=== PATIENT | female | born 1970 | race Caucasian/White ===

== ENCOUNTER 2017-02-10 16:23 | Emergency (ER) | payer BC ==
--- NOTE | 2017-02-10 17:25 | Ultrasound Preliminary Report ---
Exam: US ABDOMEN LIMITED IMPRESSION: Cholelithiasis without evidence for acute cholecystitis. [facility] SITE ID: [id number]
--- NOTE | 2017-02-10 17:28 | Ultrasound Report ---
EXAM: ABDOMEN ULTRASOUND LIMITED, RUQ EXAM DATE: 02/10/2017 05:16 PM. CLINICAL HISTORY: RUQ and epigastric pain. COMPARISON: None. TECHNIQUE: Real-time scanning was performed with static images obtained. FINDINGS: Liver: Normal in size and echotexture. 13.9 cm. Main portal vein flow: Hepatopetal. Gallbladder: Cholelithiasis. No gallbladder wall thickening or pericholecystic fluid. Negative sonogr aphic Alberts sign. Biliary System: CBD measures 4.2 mm. No intrahepatic or extrahepatic ductal dilatation. Other: Limited views of the right kidney show no hydronephrosis. Maximum length 10 cm. IMPRESSION: Cholelithiasis without evidence for acute cholecystitis. [facility] Referring Provider Line: [phone] SITE ID: [id number]
[2017-02-10 17:32] LABS: BASOPHILS # (AUTO) 0.1 10^3/uL (0.0-0.1); BASOPHILS % (AUTO) 0.5 %; EOSINOPHILS % (AUTO) 0.3 %; LYMPHOCYTES # (AUTO) 0.9 10^3/uL (1.5-3.5); LYMPHOCYTES % (AUTO) 7.4 %; MEAN CORPUSCULAR HEMOGLOBIN 30.5 pg (27.0-31.0); MEAN CORPUSCULAR HGB CONC 34.1 g/dL (32.0-36.0); MEAN CORPUSCULAR VOLUME 89.7 fL (81.0-99.0); MEAN PLATELET VOLUME 8.1 fL (7.9-10.8); MONOCYTES # (AUTO) 0.2 10^3/uL (0.0-1.0); MONOCYTES % (AUTO) 1.9 %; NEUTROPHILS # (AUTO) 11.4 10^3/uL (1.5-6.6); NEUTROPHILS % (AUTO) 89.9 %; NUCLEATED RED BLOOD CELLS AUTO 0.1 /100WBC; RED CELL DISTRIBUTION WIDTH 13.5 % (12.0-15.0); UNCORRECTED WHITE BLOOD COUNT 12.7 x10^3/uL; WHITE BLOOD COUNT 12.7 x10^3/uL (4.8-10.8)
[2017-02-10 17:46] LABS: ALBUMIN/GLOBULIN RATIO 1.2 (1.0-2.2); BILIRUBIN,TOTAL 0.6 mg/dL (0.2-1.0); CALCIUM 9.5 mg/dL (8.5-10.3); CREATININE 0.8 mg/dL (0.4-1.0); POTASSIUM 3.8 mmol/L (3.5-5.0); TOTAL PROTEIN 8.2 g/dL (6.7-8.2)
[2017-02-10] MEDS ORDERED: DICYCLOMINE 10 MG CAPSULE PO STA (18:38)
[2017-02-10] MEDS ORDERED: DICYCLOMINE 10 MG CAPSULE PO ONE (18:45)
--- NOTE | 2017-02-10 19:13 | ED Physician Documentation ---
History of Present Illness - Stated complaint Stated Complaint: UPPER ABD PX - Chief complaint Chief Complaint: Abd Pain - History obtained from History obtained from: Patient (pt is here for evaluation of epigastric pain that started today then worsened after eating [place] food. some nausea but no vomiting, no diarrhea, no fevers, no prior hx of this. No hx of abdominal surgeries.) Review of Systems Constitutional: denies: Fever, Chills, Myalgias Throat: denies: Sore throat Cardiac: denies: Chest pain / pressure, Palpitations Respiratory: denies: Dyspnea, Cough GI: reports: Abdominal Pain, Nausea. 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, Other HEENT: None Psych: None Musculoskeletal: None Derm: None Other Past Medical History: perimenapausal - Past Surgical History Past Surgical History: No - Present Medications Home Medications: Ambulatory Orders Medication Instructions Recorded Confirmed Dicyclomine [Bentyl] 10 mg PO QID PRN #10 capsule 02/10/17 HYDROcod/ACETAM 5/325 [[place] 5/325] 1 - 2 ea PO Q6H PRN #15 tablet 02/10/17 Ondansetron Odt [Zofran] 4 mg TL Q6H PRN #10 tablet 02/10/17 - Allergies Allergies/Adverse Reactions: Allergies Allergy/AdvReac Type Severity Reaction Status Date / Time Iodinated Contrast- Oral and Allergy Hives Verified 02/10/17 16:35 IV Dye naproxen [From Aleve] Allergy Itching Verified 02/10/17 16:35 - Social History Does the pt smoke?: No Smoking Status: Never smoker Does the pt drink ETOH?: Yes Does the pt have substance abuse?: No - Immunizations Immunizations are current?: Yes - POLST Patient has POLST: No PD ED PE NORMAL - Vitals Vital signs reviewed: Yes - General General: No acute distress, Well developed/nourished - HEENT HEENT: Atraumatic, Moist mucous membranes - Cardiac Cardiac: RRR, No murmur, No gallop, No rub - Respiratory Respiratory: No respiratory distress, Clear bilaterally - Abdomen Abdomen: Soft. No: Non tender (RUQ and epigastric tenderness) - Back Back: No CVA TTP - Derm Derm: Normal color, Warm and dry, No rash - Extremities Extremities: No deformity, No edema - Neuro Neuro: Alert and oriented X 3, Normal speech - Psych Psych: Normal mood Results - Vitals Vitals: Vital Signs - 24 hr 02/10/17 16:24 Temperature 37 C Heart Rate 94 Respiratory 18 Rate Blood Pressure 147/86 H O2 Saturation 98 - Labs Labs: Laboratory Tests 02/10/17 02/10/17 17:26 17:26 WBC 12.7 H RBC 4.90 Hgb 15.0 Hct 44.0 MCV 89.7 MCH 30.5 MCHC 34.1 RDW 13.5 Plt Count 304 MPV 8.1 Neut # 11.4 H Lymph # 0.9 L [place] # 0.2 Eos # 0.0 Baso # 0.1 Absolute Nucleated RBC 0.01 Nucleated RBC % 0.1 Sodium 137 Potassium 3.8 Chloride 103 Carbon Dioxide 25 Anion Gap 9.0 BUN 16 Creatinine 0.8 Estimated GFR (MDRD) 77 L Glucose 99 Calcium 9.5 Total Bilirubin 0.6 AST 22 ALT 17 Alkaline Phosphatase 104 Total Protein 8.2 Albumin 4.5 Globulin 3.7 Albumin/Globulin Ratio 1.2 Lipase 34 - Rads (name of study) RUQ US Radiology: Final report received PD MEDICAL DECISION MAKING - ED course Complexity details: d/w patient ED course: pt with slightly elevated WBC count and cholelithiasis but no US evidence of acute cholecyctitis. LFT's and lipase were normal. Discussed these findings with the pt. will hold on surgical consult for now. pt was given return precautions. she was instructed to follow up with her primary care provider for a consult to surgery She expressed understanding. Departure - Departure Disposition: 01 Home, Self Care Clinical Impression: Cholelithiasis Condition: Good Instructions: Gallstones, ED Gallstone W Biliary Colic Follow-Up: JAMAAL CALERO [Primary Care Provider] - Prescriptions: Dicyclomine [Bentyl] 10 mg PO QID PRN #10 capsule PRN Reason: Abdominal Pain HYDROcod/ACETAM 5/325 [[place] 5/325] 1 - 2 ea PO Q6H PRN #15 tablet PRN Reason: Pain Ondansetron Odt [Zofran] 4 mg TL Q6H PRN #10 tablet PRN Reason: Nausea / Vomiting Comments: take your medications as instructed. Call your primary care provider to discuss a consult to see general surgery. Return to the ER for any new symptoms , worsening pain, fevers or any other new or worsening symptoms.
[2017-02-10] MEDS ORDERED: oxyCODONE/ACET 5/325 Prepack 4 PO STA (19:43)
[2017-02-10 19:49] VITALS: BP 128/71
[2017-02-10] MEDS ORDERED: oxyCODONE/ACET 5/325 Prepack 4 PO ONE (19:50)
== END 2017-02-10 19:49 | disposition home or self-care (01) ==
LOC: ED 16:23
DX: K80.20 Calculus of gallbladder without cholecystitis without obstruction (principal); E03.9 Hypothyroidism, unspecified; K21.9 Gastro-esophageal reflux disease without esophagitis
CPT/HCPCS: 36415; 76705; 80053; 83690; 85025; 99283; 99284; A9270

== ENCOUNTER 2017-05-21 09:29 | Outpatient (CLI) | payer OTHER ==
--- NOTE | 2017-05-24 14:13 | Mammography Report ---
DIGITAL SCREENING MAMMOGRAM: 05/21/2017 CLINICAL INDICATION: A 46-year-old nulliparous patient with history of benign left breast biopsy for screening. COMPARISON: Films from [place], [place], dated 08/27/2014, 05/29/2013, 04/26/2012, 11/17/2010 05/11/2010, 05/10/10, 04/27/2010. TECHNIQUE: Routine CC and MLO projections were obtained of the breasts. FINDINGS: The breasts again demonstrate scattered fibroglandular densities bilaterally. Biopsy marker in the left lower inner central breast is stable. No suspicious masses, clustered microcalcifications, or regions of architectural distortion are identified. IMPRESSION: BENIGN FINDINGS. RECOMMENDATION: Routine annual screening unless otherwise clinically indicated. BIRADS CATEGORY 2 benign findings. STANDARD QUALIFYING STATEMENTS: 1. This examination was reviewed with the aid of Computer-Aided Detection (CAD). 2. A negative or benign imaging report should not delay biopsy if clinically suspicious findings are present. Consider surgical consultation if warranted. More than 5% of cancers are not identified by imaging. 3. Dense breasts may obscure an underlying neoplasm. TD: 05/24/2017 14:12
== END 2017-05-21 09:30 | disposition home or self-care (01) ==
LOC: DI.S 09:29
PROVIDERS: ATTEND Registered Nurse
DX: Z12.31 Encounter for screening mammogram for malignant neoplasm of breast (principal)
CPT/HCPCS: 77067

== ENCOUNTER 2017-11-05 09:22 | Outpatient (CLI) | payer OTHER ==
--- NOTE | 2017-11-05 11:36 | CT Report ---
Procedure Date: 11/05/2017 Accession Number: [id number] / [id number] Procedure: CT - Chest W/O CPT Code: FULL RESULT: EXAM: CT CHEST EXAM DATE: 11/05/2017 09:37 AM. CLINICAL HISTORY: LUNG NODULES ON AB/PELVIS CT. COMPARISONS: None. TECHNIQUE: Routine helical CT imaging was performed through the chest. IV contrast: None. Reconstructions: Coronal and sagittal. In accordance with CT protocol optimization, one or more of the following dose reduction techniques were utilized for this exam: automated exposure control, adjustment of mA and/or KV based on patient size, or use of iterative reconstructive technique. FINDINGS: Lungs/Pleura: Multiple bilateral lung nodules. Projection Engineer nodules described on series 5 2 mm right upper lobe laterally image 13 4 mm right lower lobe lateral segment image 27 6 mm and 4 mm left lower lobe image 33. Mediastinum: Normal. No adenopathy or masses. The heart and great vessels are normal. Bones: Unremarkable. Visualized Abdomen: Unremarkable. Other: None. IMPRESSION: Multiple bilateral lung nodules largest 6 mm recommend follow-up CT at 3-6 months per Fleischner recommendation below Recommend follow-up of the described nodule(s) according to the following guidelines: Fleischner Society Recommendations 2017 MacMahon et al. Radiology 2017 Solid Nodules-Low Risk Patients: <6 mm (single or multiple) - No routine follow-up* 6-8 mm (single) -CT at 6-12 months, then consider CT at 18-24 months 6-8mm (multiple) -CT at 3-6 months, then consider at CT 18-24 months >8 mm (single) -Consider CT, PET/CT, or tissue sampling at 3 months >8 mm (multiple) -CT at 3-6 months, then consider CT at 18-24 months Solid Nodules-High Risk Patients: <6 mm (single or multiple) -Optional CT at 12 months* 6-8 mm (single) -CT at 6-12 months, then CT at 18-24 months 6-8mm (multiple) -CT at 3-6 months, then CT at 18-24 months >8 mm (single) -Consider CT, PET/CT, or tissue sampling at 3 months >8 mm (multiple) -CT at 3-6 months, then at 18-24 months *Nodules < 6mm do not require routine follow-up, but suspicious nodule morphology, upper lobe location, or both may warrant 12 month follow-up Subsolid nodules: <6 mm (single, GG or part solid) -No routine follow-up >=6 mm (single GG) -CT at 6-12 months to confirm, then CT q2 years until 5 years >=6 mm (single part solid) -CT at 3-6 months to confirm, if unchanged and solid <6mm, annual CT for 5 years <6 mm (multiple GG or part solid) -CT at 3-6 months. If stable, consider CT at 2 and 4 years >=6 mm (multiple GG or part solid) -CT at 3-6 months. Subsequent management based on most suspicious nodule(s). Consider follow-up at 2 and 4 years for certain suspicious nodules <6mm. If solid component develops or growth, consider resection. [facility]
== END 2017-11-05 09:23 | disposition home or self-care (01) ==
LOC: DI 09:22
PROVIDERS: ATTEND Nurse Practitioner Family
DX: J98.4 Other disorders of lung (principal); R91.8 Other nonspecific abnormal finding of lung field
CPT/HCPCS: 71250

== ENCOUNTER 2018-01-02 20:06 | Outpatient (CLI) | payer OTHER ==
--- NOTE | 2018-01-02 21:27 | Ultrasound Report ---
Reason: RUQ PAIN,ELEVATED LFIS,KNOWN CHOLELITHIASIS Procedure Date: 01/02/2018 Accession Number: [id number] / [id number] Procedure: US - Abdomen Limited CPT Code: FULL RESULT: EXAM: ABDOMEN ULTRASOUND LIMITED, RUQ EXAM DATE: 01/02/2018 08:17 PM. CLINICAL HISTORY: Right upper quadrant pain. Elevated liver function tests. Known cholelithiasis. COMPARISON: ABDOMEN LIMITED 02/10/2017 4:49 PM. TECHNIQUE: Real-time scanning was performed with static images obtained. FINDINGS: Liver: Normal in size and echotexture. 13.6 cm. Main portal vein flow: Hepatopetal. Gallbladder: Borderline wall thickening. Multiple mobile shadowing stones and sludge in the lumen. Biliary System: CBD measures 5 mm. No intrahepatic or extrahepatic ductal dilatation. Other: The visualized pancreas and right kidney are unremarkable. No free fluid. IMPRESSION: Multiple cholelithiasis with borderline wall thickening. No point tenderness or dilated ducts. [facility]
== END 2018-01-02 20:07 | disposition home or self-care (01) ==
LOC: DI 20:06
PROVIDERS: ATTEND Registered Nurse
DX: K80.20 Calculus of gallbladder without cholecystitis without obstruction (principal)
CPT/HCPCS: 76705

== ENCOUNTER 2018-06-05 10:35 | Outpatient (CLI) | payer OTHER ==
--- NOTE | 2018-06-05 15:08 | CT Report ---
Reason: OTHER NONSPECIFIC ABNORMAL FINDING OF LUNG FIELD Procedure Date: 06/05/2018 Accession Number: [id number] / [id number] Procedure: CT - CHEST WO CPT Code: FULL RESULT: EXAM: CT CHEST EXAM DATE: 06/05/2018 10:56 AM. CLINICAL HISTORY: Multiple lung nodules for surveillance. COMPARISONS: CHEST W/O 11/05/2017 9:34 AM. TECHNIQUE: Routine helical CT imaging was performed through the chest. IV contrast: None. Reconstructions: Coronal and sagittal. In accordance with CT protocol optimization, one or more of the following dose reduction techniques were utilized for this exam: automated exposure control, adjustment of mA and/or KV based on patient size, or use of iterative reconstructive technique. FINDINGS: Lungs/Pleura: No bronchial thickening, consolidation, or edema. Pulmonary vasculature is normal. No pericardial or pleural effusion. No pneumothorax. Pulmonary nodules: Right upper lobe: 2 mm pleural-based nodule image 8 series 4 mm peripheral nodule 14/4. Right middle lobe: None. Right lower lobe: 4 mm posterior pleural-based nodule 28/4; 5 mm lateral pleural-based nodule 30/4; 4 mm nodule abutting the low major fissure 37/4. Left upper lobe/lingula: 3 cm nodule abutting the upper major fissure 14/4; 2 mm nodule 21/4; 3 mm nodule 22/4. Left lower lobe: 3 mm nodule 32/4; 2 adjacent nodules 6 and 7 mm 35/4; 2 mm posterior pleural-based nodule 38/4. Accounting for slight differences in technical measurement variation, there has been no appreciable change in size or number of pulmonary nodules since 11/05/2017 Mediastinum: Normal. No adenopathy or masses. The heart and great vessels are normal. Bones: Unremarkable. Visualized Abdomen: Unremarkable. Other: None. IMPRESSION: 1. No significant interval change in multiple bilateral pulmonary nodules as detailed above. Largest single nodule measures 7 mm in the left lower lobe (image 35, series 4). Recommend follow-up per Fleischner guidelines. If low risk individual, consider follow-up in 18-24 months to ensure long-term stability. If high risk individual, consider follow-up in 12 months. [facility]
== END 2018-06-05 10:36 | disposition home or self-care (01) ==
LOC: DI 10:35
PROVIDERS: ATTEND Registered Nurse
DX: R91.8 Other nonspecific abnormal finding of lung field (principal)
CPT/HCPCS: 71250

== ENCOUNTER 2019-12-11 16:52 | Outpatient (CLI) | payer OTHER ==
--- NOTE | 2019-12-12 09:25 | Ultrasound Report ---
PROCEDURE: Abdomen Limited INDICATIONS: CALCULUS OF GALLBLADDER TECHNIQUE: Real-time focused scanning was performed of the abdomen, with image documentation. COMPARISON: None. FINDINGS: Liver is diffusely heterogeneous and measures 13.1 cm in length. There are multiple shadow ing nonmobile gallstones present. No definite gallbladder wall thickening, or pericholecystic fluid. Sonographic Alberts's sign may be present. Mildly dilated distal common bile duct which measures 7 mm. Pancreas unremarkable. Right kidney measures 9.8 cm. There is mild right pelviectasis. IMPRESSION: Cholelithiasis and possible sonographic Alberts's sign. Please correlate clinically and with LFTs to e xclude acute cholecystitis. Of note, no definite gallbladder wall thickening or pericholecystic fluid . Minimal prominence of the distal common bile duct. Mild right pelviectasis Reviewed by: Torsten Saucedo MD on 12/12/2019 9:24 AM PDT Approved by: Torsten Saucedo MD on 12/12/2019 9:24 AM PDT Station ID: [id number]
== END 2019-12-11 16:53 | disposition home or self-care (01) ==
LOC: DI 16:52
PROVIDERS: ATTEND Nurse Practitioner Family
DX: K80.20 Calculus of gallbladder without cholecystitis without obstruction (principal)
CPT/HCPCS: 76705

== ENCOUNTER 2021-05-31 09:54 | Outpatient (CLI) | payer OTHER ==
--- NOTE | 2021-06-01 08:15 | Mammography Report ---
BILATERAL DIGITAL SCREENING MAMMOGRAM 3D/2D: 05/31/2021 CLINICAL: Routine screening. Comparison is made to exams dated: 05/21/2017 mammogram and 08/27/2014 mammogram - [facility]. There are scattered fibroglandular elements in both breasts. No significant masses, calcifications, or other findings are seen in either breast. There has been no significant interval change. IMPRESSION: NEGATIVE There is no mammographic evidence of malignancy. A 1 year screening mammogram is recommended. This exam was interpreted at Station ID: [id number]. NOTE: For mammograms, a report in lay terms will be sent to the patient. Approximately 15% of breast malignancies will not be visualized mammographically. In the management of a palpable breast mass, a negative mammogram must not discourage biopsy of a clinically suspicious lesion. Electronically Signed By: Cj Dyer M.D. ddp/penrad:05/31/2021 12:00:05 ACR BI-RADS Category 1: Negative 3341F PARENCHYMAL PATTERN: (A) - The breast(s) demonstrate(s) scattered fibroglandular densities. BI-RADS CATEGORY: (1) - 1 RECOMMENDATION: (ANNUAL) - Recommend routine annual screening mammography. [id number] 1 year screening LATERALITY: (B)
== END 2021-05-31 09:55 | disposition home or self-care (01) ==
LOC: DI.S 09:54
PROVIDERS: ATTEND Registered Nurse
DX: Z12.31 Encounter for screening mammogram for malignant neoplasm of breast (principal)

== ENCOUNTER 2021-08-04 12:23 | Outpatient (CLI) | payer OTHER ==
--- NOTE | 2021-08-04 14:19 | XRAY Report ---
PROCEDURE: Chest 2 View X-Ray INDICATIONS: COUGH, UNSPECIFIED TECHNIQUE: 2 view(s) of the chest. COMPARISON: CT chest 06/05/2018. FINDINGS: Surgical changes and devices: Cholecystectomy clips. Lungs and pleura: No pleural effusions or pneumothorax. Lungs are clear. Mediastinum: Mediastinal contours are normal. Heart size is normal. Bones and chest wall: No suspicious bony abnormalities. Soft tissues appear unremarkable. IMPRESSION: No acute cardiopulmonary abnormality. Reviewed by: Hunter Doherty MD on 08/04/2021 2:18 PM PDT Approved by: Hunter Doherty MD on 08/04/2021 2:18 PM PDT Station ID: [id number]
== END 2021-08-04 12:24 | disposition home or self-care (01) ==
LOC: DI.S 12:23
PROVIDERS: ATTEND Nurse Practitioner Family
DX: R05.9 Cough, unspecified (principal)

== ENCOUNTER 2022-03-24 10:04 | Outpatient (CLI) | payer OTHER ==
[2022-03-24 14:58] LABS: BASOPHILS # (AUTO) 0.1 10^3/uL (0.0-0.1); BASOPHILS % (AUTO) 1.4 %; EOSINOPHILS % (AUTO) 0.8 %; HCT - HEMATOCRIT 44.9 % (37.0-47.0); HGB - HEMOGLOBIN 14.4 g/dL (12.0-16.0); LYMPHOCYTES # (AUTO) 1.8 10^3/uL (1.5-3.5); LYMPHOCYTES % (AUTO) 36.1 %; MEAN CORPUSCULAR HEMOGLOBIN 29.3 pg (27.0-31.0); MEAN CORPUSCULAR HGB CONC 32.1 g/dL (32.0-36.0); MEAN CORPUSCULAR VOLUME 91.3 fL (81.0-99.0); MONOCYTES # (AUTO) 0.3 10^3/uL (0.0-1.0); MONOCYTES % (AUTO) 5.6 %; NEUTROPHILS # (AUTO) 2.8 10^3/uL (1.5-6.6); NEUTROPHILS % (AUTO) 55.9 %; PLT - PLATELET COUNT 294 10^3/uL (130-450); RED BLOOD COUNT 4.92 10^6/uL (4.20-5.40); RED CELL DISTRIBUTION WIDTH 12.9 % (12.0-15.0)
[2022-03-24 15:28] LABS: ALBUMIN 3.9 g/dL (3.2-5.5); ALBUMIN/GLOBULIN RATIO 1.1 (1.0-2.2); BILIRUBIN,TOTAL 1.1 mg/dL (0.2-1.0); CALCIUM 9.4 mg/dL (8.5-10.3); CREATININE 0.7 mg/dL (0.4-1.0); TOTAL PROTEIN 7.6 g/dL (6.7-8.2)
[2022-03-24 15:49] LABS: THYROID STIMULATING HORMONE 3.42 uIU/mL (0.34-5.60)
== END 2022-03-24 10:05 | disposition home or self-care (01) ==
LOC: LAB.S 10:04
PROVIDERS: ATTEND Nurse Practitioner Family
DX: E03.9 Hypothyroidism, unspecified (principal); E55.9 Vitamin D deficiency, unspecified; R10.11 Right upper quadrant pain; R74.8 Abnormal levels of other serum enzymes
CPT/HCPCS: 36415; 80053; 82306; 84443; 85025

== ENCOUNTER 2022-04-03 07:31 | Outpatient (CLI) | payer OTHER ==
--- NOTE | 2022-04-03 09:21 | Ultrasound Report ---
PROCEDURE: Abdomen Limited INDICATIONS: RUQ ABD PAIN TECHNIQUE: Real-time focused scanning was performed of the abdomen, with image documentation. COMPARISON: 12/11/2019 FINDINGS: Liver measures 15 cm and echotexture is heterogeneous. Mildly greater than expected echoge nicity. The main portal vein is patent. Gallbladder is surgically absent (February 06, 2020). CBD measures 8 mm, which is within normal limits postcholecystectomy. Pancreatic head is unremarkable, tail not well visualized. Right kidney measures 10 cm, within normal limits. The IVC is patent. No pathologic free fluid. At the imaged area pain, at the epigastrium, no significant sonographic abnormalities. Evaluation is obscured by bowel gas. IMPRESSION: Gallbladder is surgically absent. CBD measures 8 mm, within normal limits postcholecystectomy. No sig nificant sonographic abnormalities. In the epigastrium at the imaged area of pain, no significant sonographic correlate. This area is po ewhat obscured by bowel gas. Mildly greater than expected hepatic echogenicity, most commonly associated with steatosis. Reviewed by: Ap Avery MD on 04/03/2022 9:19 AM PST Approved by: Ap Avery MD on 04/03/2022 9:19 AM PST Station ID: [id number]
== END 2022-04-03 07:32 | disposition home or self-care (01) ==
LOC: DI 07:31
PROVIDERS: ATTEND Nurse Practitioner Family
DX: R10.11 Right upper quadrant pain (principal); Z90.49 Acquired absence of other specified parts of digestive tract

== ENCOUNTER 2023-02-14 07:00 | Outpatient (CLI) | payer OTHER ==
--- NOTE | 2023-02-14 10:44 | XRAY Report ---
PROCEDURE: Finger(s) LT INDICATIONS: CONTUSION OF LEFT RING FINGER TECHNIQUE: AP hand, 2 views of the fourth finger(s) acquired. COMPARISON: None. FINDINGS: Bones: No fractures or dislocations. Dense bony lesion in the fourth phalanx tuft measuring 4 mm. Soft tissues: No suspicious soft tissue calcifications or masses. IMPRESSION: No displaced fracture. Dense bony lesion in the fourth phalanx tuft measuring 4 mm. If there was pain prior to the injury in this site, an MRI with contrast can be considered. If not, this probably represents a benign lesion such as a bone island or enchondroma. Reviewed by: Brennan Barragan on 02/14/2023 10:42 AM [facility] Approved by: Brennan Barragan on 02/14/2023 10:42 AM [facility] Station ID: [id number]
== END 2023-02-14 23:59 | disposition home or self-care (01) ==
LOC: DI.S 07:00
PROVIDERS: ATTEND Physician Assistant Medical
DX: S60.042A Contusion of left ring finger without damage to nail, initial encounter (principal)